=== PATIENT | male | born 1985 | race Caucasian/White ===

== ENCOUNTER 2020-04-11 20:16 | Emergency (ER) | payer OTHER, SELFPAY ==
[2020-04-11 20:20] VITALS: BP 148/98; PULSE 89; RESP 17; TEMP 37.1; O2SAT 99
--- NOTE | 2020-04-11 20:38 | ED.MALEGU ---
HPI - Male Genitourinary General Chief complaint: Urogenital-Male Stated complaint: Penile discharge Time Seen by Provider: 04/11/20 20:29 History of Present Illness HPI Narrative: Clear penile discharge for the past few days. Associated with mild testicular discomfort. No sores, swelling, fever, abdominal pain, nausea, vomiting. He has a h/o multiple previous STDs. He admits to recent unprotected sexual encounter with a new partner. Related Data Allergies Allergy/AdvReac Type Severity Reaction Status Date / Time No Known Allergies Allergy Unverified 04/11/20 20:22 Review of Systems Review of Systems: All systems reviewed & are unremarkable except as noted in HPI and below Constitutional: Constitutional: Denies chills and Denies fever(s) Cardiovascular: Cardiovascular: Denies chest pain Respiratory: Respiratory: Denies dyspnea Gastrointestinal: Gastrointestinal: Denies abdominal pain, Denies nausea and Denies vomiting Genitourinary: Genitourinary: Denies hematuria, Denies genital lesions, Denies dysuria, Reports penile discharge and Reports testicular pain Musculoskeletal: Musculoskeletal: Reports back pain (chronic) Neurologic: Denies numbness and Denies weakness PMFSH Past Medical History Medical History Patient denies significant medical history Social History Social History Smoking status: Never smoker Gender identity (if verbalized by the patient): Male Exam Const: General: healthy appearing, no acute distress and alert Nutritional Appearance: well nourished HENMT: Head: normal to inspection Resp: Effort & Inspection: normal respiratory effort GI: GI Palp: Yes Soft to palpation and No Tenderness to palpation present (GI) : Male General Exam: Yes normal external exam Scrotum: scrotum normal Testes: Testes normal Skin: General skin exam: normal color Rashes: no rashes Wounds: no wounds Neuro: General: patient oriented x3 and moves all extremities Speech: normal speech Extrem: General: normal to inspection Course Vital Signs Vital signs: Vital Signs Temperature 37.1 C 04/11/20 20:20 Pulse Rate 89 04/11/20 20:20 Respiratory Rate 17 04/11/20 20:20 Blood Pressure 148/98 H 04/11/20 20:20 Pulse Oximetry 99 04/11/20 20:20 Temperature 37.1 C 04/11/20 20:20 Pulse Rate 89 04/11/20 20:20 Respiratory Rate 17 04/11/20 20:20 Blood Pressure 148/98 H 04/11/20 20:20 Pulse Oximetry 99 04/11/20 20:20 MDM - Male Genitourinary Lab Data Labs: Lab Results 04/11/20 04/11/20 04/11/20 Range/Units 20:54 20:56 20:56 C.trachomatis RNA (TMA) Pending N.gonorrhoeae RNA (TMA) Pending Trichomonas Direct ID Cancelled T. vaginalis Amp RNA Cancelled Pending Discharge Plan Discharge Clinical Impression: Urethritis Patient Disposition: Home, Self-Care Condition: Stable Instructions: Antibiotic Form, Nonspecific Urethritis in Men (ED) Prescriptions: No Action hydrocortisone [Cortisone (hydrocortisone)] 1 % cream 1 applic TOPICAL BID-TID PRN (Reason: allergic reaction) Qty: 14.2 RF: 0 famotidine [Pepcid] 20 mg tablet 20 mg PO DAILY Qty: 7 RF: 0 Follow-up/Referrals: UNKNOWN,DOCTOR [Primary Care Provider] - Discharge Date/Time: 04/11/20 21:03
[2020-04-11] MEDS: cefTRIAXone 250 MG VIAL IM (20:57)
[2020-04-11] MEDS: AZITHROMYCIN 250 MG TABLET 1000 MG PO (20:57)
[2020-04-11] MEDS: metroNIDAZOLE 250 MG TABLET 2000 MG PO (20:57)
== END 2020-04-11 21:03 | disposition home or self-care (01) ==
PROVIDERS: Emergency Provider Emergency Medicine
DX: N34.2 Other urethritis (principal)
CPT/HCPCS: 87491; 87591; 87661; 96372; 99283; A9270; J0696

== ENCOUNTER 2022-07-03 13:22 | Emergency (ER) | payer OTHER, SELFPAY ==
[2022-07-03 13:55] VITALS: BP 118/71; PULSE 63; RESP 16; TEMP 36.6; O2SAT 100
== END 2022-07-03 14:29 | disposition left against medical advice (07) ==
LOC: ANHED 14:29
DX: R42 Dizziness and giddiness (principal)
CPT/HCPCS: 99199

== ENCOUNTER 2022-07-04 11:14 | Emergency (ER) | payer OTHER, SELFPAY ==
[2022-07-04 11:18] VITALS: BP 158/100; PULSE 73; RESP 18; TEMP 36.1; O2SAT 100
[2022-07-04] MEDS: MECLIZINE HCL 25 MG TABLET PO (12:20)
--- NOTE | 2022-07-04 13:07 | ED.DIZZY ---
HPI - Dizziness General Chief Complaint: Dizziness Stated Complaint: dizziness, left flank pain Time Seen by Provider: 07/04/22 11:32 History of Present Illness HPI Narrative: Patient is a 36-year-old male who presents ER with dizziness. Its worse when he lays backwards. Occasionally associated with nausea. Ongoing over the last week. Has tried no medication. No numbness or tingling in the arms or legs. No chest pain or chest pressure. Has felt elevated heart rate at times related to this. Patient denies decrease in hearing or muffled hearing or ear pressure. He has been trying to manipulate his left ear over the last week without improvement. Related Data Allergies Allergy/AdvReac Type Severity Reaction Status Date / Time No Known Allergies Allergy Verified 07/03/22 13:54 Review of Systems Review of Systems: All systems reviewed & are unremarkable except as noted in HPI and below Constitutional: Constitutional: Denies chills and Denies fever(s) ENT: Reports dizziness, Denies nasal congestion and Denies sore throat Cardiovascular: Cardiovascular: Denies chest pain, Denies rapid heart rate and Denies radiating jaw, neck or arm pain Neurologic: Reports dizziness, Denies focal weakness and Denies numbness PMFSH Past Medical History Medical History (Updated 07/04/22 @ 13:07 by Oli Meehan MD) Patient denies significant medical history Social History Social History Smoking status: Never smoker Gender identity (if verbalized by the patient): Male Exam Narrative: GENERAL: Well-appearing, well-nourished, and in no acute distress. HEAD: Normocephalic, atraumatic. EYES: PERRL and EOMI. ENT: Mucous membranes moist. TMs normal bilaterally. CHEST: Clear to auscultation. No respiratory distress. HEART: Regular rate and rhythm. Normal peripheral pulses. EXTREMITIES: Normal range of motion. No edema. NEURO: Alert and oriented x3. Ambulates with a steady gait. Has been able to stand up and bend over at the waist in all directions without provoking his dizziness. PSYCH: Normal mood and affect. Course Course Emergency Course: Discharge home. Improved symptoms with meclizine. [place] to be peripheral in nature as patient has been trying to manipulate his ear over the last week to help with symptoms. Vital Signs Vital signs: Vital Signs Temperature 97 F L 07/04/22 11:18 Pulse Rate 73 07/04/22 11:18 Respiratory Rate 18 07/04/22 11:18 Blood Pressure 158/100 H 07/04/22 11:18 Pulse Oximetry 100 07/04/22 11:18 Oxygen Delivery Room Air 07/04/22 11:18 Temperature 97 F L 07/04/22 11:18 Pulse Rate 73 07/04/22 11:18 Respiratory Rate 18 07/04/22 11:18 Blood Pressure 158/100 H 07/04/22 11:18 Pulse Oximetry 100 07/04/22 11:18 Oxygen Delivery Room Air 07/04/22 11:18 Discharge Plan Discharge Clinical Impression: Vertigo Patient Disposition: Home, Self-Care Condition: Stable Instructions: Vertigo (ED) Additional Instructions: Return the ER if you have focal weakness in arm or leg, you cannot keep down food or water, you lose consciousness, you have additional concerns. Take the meclizine 3 times a day over the next 2 days and then take it as needed for dizziness after that. Prescriptions: New meclizine 12.5 mg tablet 12.5 mg PO TID PRN (Reason: dizziness) Qty: 10 0RF No Action hydrocortisone [Cortisone (hydrocortisone)] 1 % cream 1 applic TOPICAL BID-TID PRN (Reason: allergic reaction) Qty: 14.2 0RF famotidine [Pepcid] 20 mg tablet 20 mg PO DAILY Qty: 7 0RF Follow-up/Referrals: Vikram Yap MD [Physician] - 1 Week PHYSICIAN NOT ON STAFF,NONSTAFF [Primary Care Provider] -
== END 2022-07-04 13:25 | disposition home or self-care (01) ==
PROVIDERS: Emergency Provider Emergency Medicine
DX: R42 Dizziness and giddiness (principal)
CPT/HCPCS: 99283; A9270

== ENCOUNTER 2022-09-11 14:18 | Emergency (ER) | payer OTHER, SELFPAY ==
--- NOTE | ~2022-09-11 | XR_ITS ---
EXAMINATION: XR chest 2V DATE: 09/11/2022 14:33 INDICATION: Cough TECHNIQUE: PA and lateral views of the chest are obtained. COMPARISON: 04/13/2016 FINDINGS: The lungs are free of acute opacities. No pleural effusion or pneumothorax. The cardiomedia stinal silhouette is normal. The visualized bones and soft tissues are unremarkable. IMPRESSION: 1. No acute cardiopulmonary abnormality. Reviewed, dictated and finalized at location B. T TECH
[2022-09-11 14:20] VITALS: BP 166/116; PULSE 85; RESP 16; TEMP 36.9; O2SAT 100
[2022-09-11 17:40] VITALS: BP 133/97; PULSE 79; RESP 15; TEMP 36.6; O2SAT 99
--- NOTE | 2022-09-11 17:42 | ED.URI ---
HPI - URI/Sore Throat General Chief Complaint: Upper Respiratory Infection Stated Complaint: cough Time Seen by Provider: 09/11/22 17:21 Source: patient Mode of arrival: ambulatory Limitations: no limitations History of Present Illness HPI Narrative: Patient is a 36-year-old male who presents the ED with report of persistent cough. Patient reports he had an upper respiratory infection 2 weeks ago with cough, congestion, rhinorrhea. He was seen at an outside urgent care and prescribed azithromycin. He was not tested for influenza or COVID at that time. He states symptoms improved and he has felt fine since then, but reports having a persistent cough, occasionally productive of brownish sputum. He otherwise denies any symptoms currently. He states he noted a very small tinge of blood in his sputum today, which prompted his presentation. Denies fever, chest pain, difficulty breathing. Related Data Allergies Allergy/AdvReac Type Severity Reaction Status Date / Time No Known Allergies Allergy Verified 07/03/22 13:54 Review of Systems Review of Systems: CONSTITUTIONAL: Denies fever, chills, or sweats. ENT: See HPI. CARDIOVASCULAR: Denies chest pain. RESPIRATORY: See HPI. GASTROINTESTINAL: Denies abdominal pain, nausea, vomiting. All systems reviewed & are unremarkable except as noted in HPI and below PMFSH Past Medical History Medical History Patient denies significant medical history Social History Social History Smoking status: Never smoker Gender identity (if verbalized by the patient): Male Exam Narrative: GENERAL: Well appearing, obese, non-toxic, in no acute distress. HEAD: Normocephalic, atraumatic. ENT: Mucous membranes moist. No posterior pharynx erythema. No tonsillar hypertrophy or exudate. Uvula midline. NECK: Supple. No adenopathy, no masses. RESPIRATORY: Airway patent, respirations nonlabored. Clear to auscultation bilaterally, no rales, rhonchi, wheezing. No distress. CARDIOVASCULAR: Regular rate and rhythm without murmurs, rubs, or gallops. Peripheral pulses 2+ and equal bilaterally. ABDOMINAL: Soft, nontender, nondistended, no hepatosplenomegaly. Normoactive BS. MUSCULOSKELETAL: Moves all extremities. Strength/ROM intact without gross deformities. SKIN: Warm, dry, normal color. No rashes. NEURO: A&O X3. Speech clear. Cranial nerves II-XII grossly intact. Steady gait. No ataxic movements. PSYCHIATRIC: Appropriate mood and affect. Normal interaction. Course Vital Signs Vital signs: Vital Signs Temperature 98.5 F 09/11/22 14:20 Pulse Rate 85 09/11/22 14:20 Respiratory Rate 16 09/11/22 14:20 Blood Pressure 166/116 H 09/11/22 14:20 Pulse Oximetry 100 09/11/22 14:20 Oxygen Delivery Room Air 09/11/22 14:20 Temperature 98 F 09/11/22 17:46 Pulse Rate 79 09/11/22 17:46 Respiratory Rate 15 09/11/22 17:46 Blood Pressure 133/97 H 09/11/22 17:46 Pulse Oximetry 99 09/11/22 17:48 Oxygen Delivery Room Air 09/11/22 17:48 MDM - URI/Sore Throat MDM Narrative Medical decision making narrative: Patient reported having persistent cough, ongoing x2 weeks status post URI. Noticed very small amount of blood-tinged sputum today. Patient's vitals stable upon arrival. Chest x-ray unremarkable. No signs of pneumonia. Patient otherwise asymptomatic at this time. Denying chest pain or difficulty breathing. No tachycardia or hypoxia. No lower extremity pain or swelling. Very low suspicion for PE or other acute pulmonary abnormality. Discussed likelihood of bronchitis and that symptoms should resolve soon. I recommended patient take Sudafed, Mucinex as needed. Do not feel patient requires antibiotics as he is otherwise denying any infectious symptoms or fevers. No wheezing or abnormal lung sounds heard on exam. Patient will be discharged. Advised giles
[2022-09-11 17:46] VITALS: BP 133/97; PULSE 79; RESP 15; TEMP 36.6; O2SAT 99
[2022-09-11 17:48] VITALS: O2SAT 99
== END 2022-09-11 18:41 | disposition home or self-care (01) ==
PROVIDERS: Emergency Provider Physician Assistant
DX: J40 Bronchitis, not specified as acute or chronic (principal)
CPT/HCPCS: 71046; 99283

== ENCOUNTER 2023-03-06 14:01 | Observation (INO) | payer OTHER, SELFPAY ==
--- NOTE | ~2023-03-06 | CT_ITS ---
EXAMINATION: CT abdomen pelvis w con DATE: 03/06/2023 16:13 INDICATION: abdominal pain / nausea vomiting TECHNIQUE: Computed tomography (CT) of the abdomen and pelvis was performed with 100 mL Omnipaque-350 intravenous contrast. Automated exposure control and iterative reconstruction technique were employe d. The dose-length product was 653.19 mGy-cm. COMPARISON: None. FINDINGS: Lower thorax: Unremarkable. Calcified right lower lobe granuloma. Liver: Normal. Biliary/Gallbladder: Gallbladder is normal. No bile duct dilation. Pancreas: No mass or duct dilation. Spleen: Normal. Adrenals:No mass. Kidneys: No suspicious mass, stone, or hydronephrosis. GI tract: Cecal and proximal ascending colonic wall thickening and surrounding inflammatory change. C olonic submucosal fat as can be seen with chronic IBD, obesity, chemotherapy treatment, and celiac di sease. No small or large bowel dilation. Normal appendix. Mild diverticulosis without diverticulitis. Mesentery/Peritoneum: No ascites, mass, or free air. Retroperitoneum: No mass. Pelvis: Pelvic organs are within normal limits. Soft Tissues: Soft tissues and body wall unremarkable. Bones: No acute osseous finding. IMPRESSION: Colitis involving the cecum and proximal ascending colon, likely on an infectious or inflammatory bas is. Consider ischemia if there is a history of vasculitis. Reviewed, dictated and finalized at location K. IMPRESSION: Colitis involving the cecum and proximal ascending colon, likely on an infectio us or inflammatory basis. Consider ischemia if there is a history of vasculitis .
[2023-03-06 14:03] VITALS: BP 100/68; PULSE 86; RESP 18; TEMP 36.5; O2SAT 100
[2023-03-06 15:00] LABS: Basophils Percent Auto 0.2 % (0.2-1.2); Eosinophils Percent Auto 0.2 % (0-4.4); Hematocrit 42.6 % (42.0-52.0); Hemoglobin 14.4 g/dL (14.0-18.0); Immature Granulocyte Absolute 0.04 K/mm3 (0.00-0.031); Immature Granulocyte Percent A 0.3 % (0-0.5); Lymphocytes Absolute Auto 1.91 K/mm3 (0.9-3.2); Lymphocytes Percent Auto 13.4 % (18.3-44.2); Mean Corpuscular HGB Conc 33.8 g/dl (32-36); Mean Corpuscular Hemoglobin 29.8 pg (26-34); Mean Corpuscular Volume 88.2 fl (80-100); Mean Platelet Volume 10.2 fl (7.4-10.4); Monocytes Absolute Auto 1.3 K/mm3 (0.1-0.6); Monocytes Percent Auto 9.4 % (2.6-8.5); Neutrophils Absolute Auto 10.9 K/mm3 (1.3-6.7); Neutrophils Percent Auto 76.5 % (45.5-73.1); Platelet Count Result 301 k/mm3 (150-375); Red Blood Count 4.83 M/mm3 (4.6-6.20); Red Cell Distribution Width 11.8 % (11.5-14.5); White Blood Count 14.3 K/mm3 (4.5-10.0)
[2023-03-06 15:04] VITALS: BP 113/77; PULSE 81; RESP 16; O2SAT 98
[2023-03-06 15:13] LABS: Alanine Aminotransferase 25 U/L (6-50); Albumin Level 4.8 g/dL (3.5-5.1); Alkaline Phosphatase 82 U/L (38-126); Anion Gap 8 mmol/L (8-16); Aspartate Amino Transferase 23 U/L (17-59); Bilirubin,Total 0.8 mg/dL (0.2-1.3); Blood Urea Nitrogen 37 mg/dL (9-20); Calcium 9.6 mg/dL (8.4-10.2); Carbon Dioxide 29 mmol/L (22-30); Chloride 97 mmol/L (98-107); Estimated CRCL calculation 40 ml/min; Estimated Glomerular Filt Rate 32; Glucose 110 mg/dL (65-110); Lipase 39 U/L (23-300); Potassium 4.3 mmol/L (3.4-5.0); Sodium 134 mmol/L (137-145)
[2023-03-06] MEDS: ONDANSETRON INJ 4 MG/2 ML VIAL IV PUSH (15:57)
[2023-03-06] MEDS: FAMOTIDINE 20 MG/2 ML VIAL IV PUSH (15:58)
[2023-03-06] MEDS: SODIUM CHLORIDE 0.9% IV 1,000 ML 999 ML IV CONT ×2 (15:58→17:17)
[2023-03-06 16:03] LABS: Magnesium 2.4 mg/dL (1.6-2.3)
[2023-03-06 16:12] LABS: Creatine Kinase 65 U/L (55-170)
--- NOTE | 2023-03-06 16:49 | ED.GENADULT ---
HPI - General Adult General Chief complaint: Unspecified <Darlene Mcgregor December, GRAIN DRIER OPERATOR - Last Filed: 03/06/23 18:55> Stated complaint: lethargic <Darlene Mcgregor December, - Last Filed: 03/06/23 18:55> Time Seen by Provider: 03/06/23 15:03 <Darlene Mcgregor December,N - Last Filed: 03/06/23 18:55> History of Present Illness HPI narrative: Ruslan Galarza is a 37 y/o male who presents today with complaints of abdominal pain with nausea vomiting. He states that he started to have abdominal pain 2 days ago, he came her to be evaluated but could not wait and had to get home. Yesterday he states that he had more nausea/vomiting and he has not been able to keep anything down. He denies any known fevers/ denies testicular pain/ denies changes with urination. His last BM was normal and it was today. <Darlene Mcgregor December,N - Last Filed: 03/06/23 18:55> Related Data Home medications: Home Medications Medication Instructions Recorded Confirmed atorvastatin 40 mg tablet 40 mg PO HS 03/06/23 03/06/23 bupropion HCl 300 mg 24 hr tablet, 300 mg PO DAILY 03/06/23 03/06/23 extended release clonidine HCl 0.1 mg tablet 0.1 mg PO BID PRN Anxiety 03/06/23 03/06/23 lisinopril 20 mg tablet 20 mg PO DAILY 03/06/23 03/06/23 <Darlene Mcgregor December,N - Last Filed: 03/06/23 18:55> Allergies/adverse reactions: Allergies Allergy/AdvReac Type Severity Reaction Status Date / Time No Known Allergies Allergy Verified 07/03/22 13:54 <Darlene Mcgregor December,N - Last Filed: 03/06/23 18:55> Review of Systems Review of Systems: CONSTITUTIONAL: Denies fever, chills, or sweats. EYES: Denies visual changes, redness, or discharge. ENT: Denies rhinorrhea, congestion, sore throat, or otalgia. CARDIOVASCULAR: Denies chest pain, palpitations, or edema. RESPIRATORY: Denies cough or dyspnea. GASTROINTESTINAL: Reports abdominal pain, nausea, vomiting, denies diarrhea. GENITOURINARY: Denies dysuria or hematuria. SKIN: Denies rash or itching. MUSCULOSKELETAL: Denies back pain, joint pain, or myalgia. NEUROLOGIC: Denies headache, numbness, dizziness, or weakness. PSYCHIATRIC: Denies anxiety or depression. <Darlene Mcgregor December, - Last Filed: 03/06/23 18:55> PMFSH Past Medical History Medical History: Medical History (Updated 03/06/23 @ 21:46 by Ramila Oakes PA-C) Anxiety Hyperlipidemia Hypertension <Darlene Mcgregor December, Last Filed: 03/06/23 18:55> Surgical History Surgical History: Surgical History (Updated 03/06/23 @ 21:39 by Ramila Oakes PA-C) History of colonoscopy <Darlene Mcgregor December, Last Filed: 03/06/23 18:55> Family History Family History: Family History (Updated 03/06/23 @ 21:39 by Ramila Oakes PA-C) Other Family history non-contributory <Darlene Mcgregor December, Last Filed: 03/06/23 18:55> Social History Social History: Social History Social History: Surrogate medical decision maker: Dulce Salguero, significant other. Code status: Full code. Smoking status: Never smoker Alcohol intake: never Drinks per week: 10 Substance use: never Substance use type: marijuana Lack of Transportation: YES Lack of Food: Never True Current Housing: I Have Housing Concerned About Future Housing: No Difficulty Paying Gas/Electric Bills: No Difficulty Paying for Meds: No Currently Unemployed: No Education: High School Diploma/GED Difficulty w/ Childcare or Family Care: No Spiritual care concerns: No <Darlene Mcgregor December, Last Filed: 03/06/23 18:55> Exam Narrative: GENERAL: Well-appearing, well-nourished, and in no acute distress. HEAD: Normocephalic, atraumatic. EYES: PERRLA and EOMI. ENT: Nares clear, no rhinorrhea or epistaxis. Mucous membranes moist. Oropharynx without tonsillar hypertrophy exudate or other lesions. NECK: Supple. No adenopathy or masses. No carotid bruits or JVD CHEST: Clear to auscultation. No
[2023-03-06 17:00] LABS: Appearance Urine Clear (Clear); Bacteria Urine None Seen /hpf; Bilirubin Urine Negative (Negative); Blood Urine Negative (Negative); Color Urine Yellow (Yellow); Glucose Urine UA Negative (Negative); Ketones Urine Negative (Negative); Leukocyte Esterase Ur Negative LEU/UL (Negative); Nitrate Urine Negative (Negative); Protein Urine Trace mg/dL (Negative); RBC Urine 0-2 /hpf (0-2); Squamous Epithelial Cell Urine None seen /hpf (Few); Urobilinogen Urine 0.2 mg/dL (<2.0); WBC Urine 0-5 /hpf
[2023-03-06 17:04] LABS: Add Urine Microscopic? YES; Specific Grav Ur 1.057 (1.001-1.035)
[2023-03-06] MEDS: LORazepam INJ (*CRX) 2 MG/ML VIAL 0.5 MG IV PUSH (17:17)
[2023-03-06 18:30] VITALS: BMI 28.0
--- NOTE | 2023-03-06 18:33 | PM.IMHP ---
H&P: HPI History of Present Illness Date/Time: 03/06/23 18:30 Chief Complaint: Abdominal pain and weakness. Narrative: This is a 37-year-old male with hypertension, hyperlipidemia, and anxiety who presented to the emergency department via private vehicle from home for evaluation of abdominal pain and weakness. The patient provides the following history. He developed diffuse abdominal discomfort several days ago which he has difficulties describing. He came to the ER 2 days ago for evaluation of these symptoms however the wait was long and he left from triage. He did have labs drawn at that time however and his creatinine was 4.00. 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 Unfortunately he continues to have the abdominal discomfort in addition to generalized weakness, fatigue with ?no energy? and occasional loose stools described as yellow and mucousy. He has been getting lightheaded and dizzy upon standing and reports near-syncope. He returned today and his blood pressures were stable on arrival. BUN and creatinine are elevated but look better compared to labs drawn a couple of days ago at 37 and 2.30 respectively. White blood cell count was elevated at 14.3. CT of the abdomen and pelvis showed colitis involving the cecum and proximal ascending colon, likely infectious or inflammatory. He was started on IV fluids and Zosyn in the ED and he is being admitted in this setting for further treatment and evaluation. With further questioning he mentions having a bout of colitis in his 20s and there were concerns at that time for possible inflammatory bowel disease however he reports having a colonoscopy as an outpatient which was unremarkable. He denies fever, hematemesis, melena, sick contacts, recent antibiotic use, and recent travel. He has lost some weight though that has been intentional. Review of Systems Review of Systems: Twelve systems were reviewed and are negative except for as per HPI. [facility] Past Medical History Medical History (Updated 03/06/23 @ 21:46 by Ramila Oakes PA-C) Anxiety Hyperlipidemia Hypertension Surgical History Surgical History (Updated 03/06/23 @ 21:39 by Ramila Oakes PA-C) History of colonoscopy Family History Family History (Updated 03/06/23 @ 21:39 by Ramila Oakes PA-C) Other Family history non-contributory Social History Social History Social History: Surrogate medical decision maker: Dulce Salguero, significant other. Code status: Full code. Smoking status: Never smoker Alcohol intake: never Drinks per week: 10 Substance use: never Substance use type: marijuana Lack of Transportation: YES Lack of Food: Never True Current Housing: I Have Housing Concerned About Future Housing: No Difficulty Paying Gas/Electric Bills: No Difficulty Paying for Meds: No Currently Unemployed: No Education: High School Diploma/GED Difficulty w/ Childcare or Family Care: No Spiritual care concerns: No Meds Home Medications and Allergies Home Medications Medication Instructions Recorded Confirmed Type atorvastatin 40 mg tablet 40 mg PO HS 03/06/23 03/06/23 History bupropion HCl 300 mg 24 hr tablet, 300 mg PO DAILY 03/06/23 03/06/23 History extended release clonidine HCl 0.1 mg tablet 0.1 mg PO BID PRN Anxiety 03/06/23 03/06/23 History lisinopril 20 mg tablet 20 mg PO DAILY 03/06/23 03/06/23 History Allergies Allergy/AdvReac Type Severity Reaction Status Date / Time No Known Allergies Allergy Verified 07/03/22 13:54 Vital Signs Vital Signs - 24 hr 03/06/23 14:03 03/06/23 15:04 Temperature 97.7 F Pulse Rate 86 81 Respiratory Rate 18 16 Blood Pressure 100/68 113/77 Pulse Oximetry 100 98 Oxygen Delivery Room Air Exam Narrative: General: Nontoxic-appearing
[2023-03-06] MEDS: PIPERACILLIN/TAZ 4.5G/NS 100ML 4.5 GM/100 ML BAG IVPB (18:34)
--- NOTE | 2023-03-06 20:10 | ADMGEN ---
This patient, uRslan Galarza, was admitted to [facility] Surg Room 302-01. Patient/family oriented to hospital policies and general routines including ID bracelet, bed and alarms, visiting hours, pain management, procedures, bathroom and other care routines, personal items, smoking policy, room service/diet, and visiting hours. Information on how to activate the Rapid Response Team has been discussed. Patient/Family are encouraged to report perceived risks to care and to ask questions if they do not understand what they are told or what they should do.
[2023-03-06] MEDS: LACTATED RINGERS 1,000 ML 150 ML IV CONT (20:29)
[2023-03-06] MEDS: clonazePAM (*CRX) 0.5 MG TABLET 1 MG PO (20:29)
[2023-03-06 22:00] VITALS: BP 107/53; PULSE 77; RESP 16; TEMP 36.8; O2SAT 100
[2023-03-06] MEDS: ATORVASTATIN 40 MG TABLET PO (22:54)
[2023-03-07] MEDS: PIPERACILLIN/TAZ 2.25G/NS 50ML 2.25 GM/50 ML BAG IVPB ×3 (00:20→11:49)
[2023-03-07 05:19] VITALS: BP 98/63; PULSE 70; RESP 16; TEMP 35.8; O2SAT 99
[2023-03-07 06:41] LABS: Hematocrit 35.4 % (42.0-52.0); Hemoglobin 11.8 g/dL (14.0-18.0); Mean Corpuscular HGB Conc 33.3 g/dl (32-36); Mean Corpuscular Hemoglobin 29.9 pg (26-34); Mean Corpuscular Volume 89.8 fl (80-100); Mean Platelet Volume 10.3 fl (7.4-10.4); Platelet Count Result 215 k/mm3 (150-375); Red Blood Count 3.94 M/mm3 (4.6-6.20); Red Cell Distribution Width 11.7 % (11.5-14.5); White Blood Count 9.4 K/mm3 (4.5-10.0)
[2023-03-07 07:33] LABS: Anion Gap 1 mmol/L (8-16); Blood Urea Nitrogen 25 mg/dL (9-20); Calcium 8.7 mg/dL (8.4-10.2); Carbon Dioxide 29 mmol/L (22-30); Chloride 104 mmol/L (98-107); Estimated CRCL calculation 64 ml/min; Estimated Glomerular Filt Rate 49; Glucose 98 mg/dL (65-110); Magnesium 2.1 mg/dL (1.6-2.3); Potassium 4.7 mmol/L (3.4-5.0); Sodium 134 mmol/L (137-145)
[2023-03-07 08:00] VITALS: RESP 16; O2SAT 98; O2SAT 99
[2023-03-07] MEDS: buPROPion HCL XL (24 HR) 150 MG TABCR 300 MG PO (08:10)
--- NOTE | 2023-03-07 08:30 | PM.IMPN ---
Progress Note: A&P Assessment and Plan (1) Colitis: Code(s): K52.9 - Noninfective gastroenteritis and colitis, unspecified Status: Acute Assessment and Plan: Colitis seen on imaging involving the cecum and proximal ascending colon could be infectious or inflammatory. -will start her on IV fluids and Zosyn -p.r.n. pain medication -regular diet -GI follow up as outpatient. -stool cultures ordered but not collected (2) Acute kidney injury: Code(s): N17.9 - Acute kidney failure, unspecified Status: Acute Assessment and Plan: Creatinine was 4 when he presented to the ER on 03/04. This admission creatinine is 2.3 and down trending with IV fluids. Avoid nephrotoxic agents. Holding lisinopril. Likely pre renal related to dehydration from colitis. (3) Dehydration: Code(s): E86.0 - Dehydration Status: Acute Assessment and Plan: IV fluids Monitor labs Vital signs stable (4) Hypertension: Code(s): I10 - Essential (primary) hypertension Status: Acute Assessment and Plan: On clonidine and lisinopril at home. Both agents held. Blood pressures are 107-98/53-63 (5) Anxiety: Code(s): F41.9 - Anxiety disorder, unspecified Status: Acute Assessment and Plan: Stable. Taking bupropion and clonidine Subjective Date/time seen: 03/07/23 08:30 Interval history: Chief Complaint: Abdominal pain and weakness. Narrative: This is a 37-year-old male with hypertension, hyperlipidemia, and anxiety who presented to the emergency department via private vehicle from home for evaluation of abdominal pain and weakness. The patient provides the following history. He developed diffuse abdominal discomfort several days ago which he has difficulties describing. He came to the ER 2 days ago for evaluation of these symptoms however the wait was long and he left from triage. He did have labs drawn at that time however and his creatinine was 4.00. 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 Unfortunately he continues to have the abdominal discomfort in addition to generalized weakness, fatigue with ?no energy? and occasional loose stools described as yellow and mucousy. He has been getting lightheaded and dizzy upon standing and reports near-syncope. He returned today and his blood pressures were stable on arrival. BUN and creatinine are elevated but look better compared to labs drawn a couple of days ago at 37 and 2.30 respectively. White blood cell count was elevated at 14.3.? CT of the abdomen and pelvis showed colitis involving the cecum and proximal ascending colon, likely infectious or inflammatory. He was started on IV fluids and Zosyn in the ED and he is being admitted in this setting for further treatment and evaluation. With further questioning he mentions having a bout of colitis in his 20s and there were concerns at that time for possible inflammatory bowel disease however he reports having a colonoscopy as an outpatient which was unremarkable. He denies fever, hematemesis, melena, sick contacts, recent antibiotic use, and recent travel. He has lost some weight though that has been intentional. 03/07: Patient is seen today resting in bed with his and daughter at the bedside. He has been tolerating a regular diet and says that his pain is better than when he came in. He is also feeling less weak now that we have hydrated him. He is very talkative and has concerns about why he has so dehydrated or while kidneys were not functioning properly. He says those started on lisinopril a couple of months ago for high blood pressure however since then he has been having intermittent episodes of was presumed to be orthostatic hypotension. 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 However he feels like he drinks plenty fluids w
[2023-03-07] MEDS: HYDROcodone/acetaminophen (*CRX) 5-325 MG TABLET 1 TAB PO (11:53)
[2023-03-07] MEDS: LACTATED RINGERS 1,000 ML 150 ML IV CONT (11:58)
[2023-03-07 14:21] LABS: Anion Gap 4 mmol/L (8-16); Blood Urea Nitrogen 24 mg/dL (9-20); Calcium 8.2 mg/dL (8.4-10.2); Carbon Dioxide 27 mmol/L (22-30); Chloride 103 mmol/L (98-107); Estimated CRCL calculation 73 ml/min; Estimated Glomerular Filt Rate 57; Glucose 128 mg/dL (65-110); Potassium 4.2 mmol/L (3.4-5.0); Sodium 134 mmol/L (137-145)
--- NOTE | 2023-03-07 14:32 | PM.DS ---
DS: Admitting Diagnosis Discharge Date WednesdayMarch 07 Admitting Diagnosis ISABELA DS: Discharge Diagnosis Discharge Diagnosis (1) Colitis: Code(s): K52.9 - Noninfective gastroenteritis and colitis, unspecified Status: Acute Assessment and Plan: Colitis seen on imaging involving the cecum and proximal ascending colon could be infectious or inflammatory. -will start her on IV fluids and Zosyn -p.r.n. pain medication -regular diet -GI follow up as outpatient. -stool cultures ordered but not collected (2) Acute kidney injury: Code(s): N17.9 - Acute kidney failure, unspecified Status: Acute Assessment and Plan: Creatinine was 4 when he presented to the ER on 03/04. This admission creatinine is 2.3 and down trending with IV fluids. Avoid nephrotoxic agents. Holding lisinopril. Likely pre renal related to dehydration from colitis. (3) Dehydration: Code(s): E86.0 - Dehydration Status: Acute Assessment and Plan: IV fluids Monitor labs Vital signs stable (4) Hypertension: Code(s): I10 - Essential (primary) hypertension Status: Acute Assessment and Plan: On clonidine and lisinopril at home. Both agents held. Blood pressures are 107-98/53-63 (5) Anxiety: Code(s): F41.9 - Anxiety disorder, unspecified Status: Acute Assessment and Plan: Stable. Taking bupropion and clonidine DS: Summary Hospital Course Hospital Course: Narrative: This is a 37-year-old male with hypertension, hyperlipidemia, and anxiety who presented to the emergency department via private vehicle from home for evaluation of abdominal pain and weakness. The patient provides the following history. He developed diffuse abdominal discomfort several days ago which he has difficulties describing. He came to the ER 2 days ago for evaluation of these symptoms however the wait was long and he left from triage. He did have labs drawn at that time however and his creatinine was 4.00. 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 Unfortunately he continues to have the abdominal discomfort in addition to generalized weakness, fatigue with ?no energy? and occasional loose stools described as yellow and mucousy. He has been getting lightheaded and dizzy upon standing and reports near-syncope. He returned today and his blood pressures were stable on arrival. BUN and creatinine are elevated but look better compared to labs drawn a couple of days ago at 37 and 2.30 respectively. White blood cell count was elevated at 14.3.? CT of the abdomen and pelvis showed colitis involving the cecum and proximal ascending colon, likely infectious or inflammatory. He was started on IV fluids and Zosyn in the ED and he is being admitted in this setting for further treatment and evaluation. With further questioning he mentions having a bout of colitis in his 20s and there were concerns at that time for possible inflammatory bowel disease however he reports having a colonoscopy as an outpatient which was unremarkable. He denies fever, hematemesis, melena, sick contacts, recent antibiotic use, and recent travel. He has lost some weight though that has been intentional. 03/07:? Patient is seen today resting in bed with his and daughter at the bedside.? He has been tolerating a regular diet and says that his pain is better than when he came in.? He is also feeling less weak now that we have hydrated him.? He is very talkative and has concerns about why he has so dehydrated or while kidneys were not functioning properly.? He says those started on lisinopril a couple of months ago for high blood pressure however since then he has been having intermittent episodes of was presumed to be orthostatic hypotension.? 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 However he feels like he
[2023-03-07 14:52] VITALS: BP 119/65; O2SAT 98
== END 2023-03-07 15:20 | disposition home or self-care (01) ==
LOC: ANHED 17:48 → ANH3MEDSUR 19:13
PROVIDERS: Emergency Medicine; Nurse Practitioner Acute Care; Physician Assistant; Admitting Provider Student in an Organized Health Care Education/Training Program; Emergency Provider Nurse Practitioner Family; PCP Physician Assistant; Visit Provider Student in an Organized Health Care Education/Training Program
DX: K52.9 Noninfective gastroenteritis and colitis, unspecified (principal); N17.9 Acute kidney failure, unspecified; E86.0 Dehydration; I10 Essential (primary) hypertension; F41.9 Anxiety disorder, unspecified; R11.2 Nausea with vomiting, unspecified; R53.1 Weakness; R53.83 Other fatigue; R42 Dizziness and giddiness; D72.829 Elevated white blood cell count, unspecified; E78.5 Hyperlipidemia, unspecified; R79.89 Other specified abnormal findings of blood chemistry; Z79.899 Other long term (current) drug therapy
CPT/HCPCS: 36415; 74177; 80048; 80053; 81001; 82550; 83605; 83690; 83735; 85025; 85027; 96361; 96365; 96366; 96374; 96375; 99285; A9270; G0378; G0379; J2060; J2405; J2543; J7030; J7120; Q9967

== ENCOUNTER 2023-06-20 17:02 | Emergency (ER) | payer OTHER, SELFPAY ==
[2023-06-20 17:07] VITALS: BP 136/88; PULSE 84; RESP 16; TEMP 36.8; O2SAT 98
--- NOTE | 2023-06-20 17:47 | ED.WOUNDLAC ---
HPI - Wound/Laceration General Chief Complaint: Wound/Laceration Stated Complaint: infected finger Time Seen by Provider: 06/20/23 17:11 History of Present Illness HPI narrative: Patient is a 37-year-old male presenting with concerns for an infection. States that he cut his left index finger a few days ago. States that he noticed a small amount of pus draining from it today and there was some surrounding redness. He denies pain or redness spreading down his finger. Denies decreased range of motion. No fevers or chills. No further complaints. Related Data Home Medications Medication Instructions Recorded Confirmed lisinopril 20 mg tablet 20 mg PO DAILY 03/06/23 03/06/23 Allergies Allergy/AdvReac Type Severity Reaction Status Date / Time No Known Allergies Allergy Verified 06/20/23 17:08 Review of Systems Review of Systems: All systems reviewed & are unremarkable except as noted in HPI and below PMFSH Past Medical History Medical History Anxiety Hyperlipidemia Hypertension Surgical History Surgical History History of colonoscopy Family History Family History Other Family history non-contributory Social History Social History Social History: Surrogate medical decision maker: Dulce Salguero, significant other. Code status: Full code. Smoking status: Never smoker Alcohol intake: never Drinks per week: 10 Substance use: never Substance use type: marijuana Lack of Transportation: YES Lack of Food: Never True Current Housing: I Have Housing Concerned About Future Housing: No Difficulty Paying Gas/Electric Bills: No Difficulty Paying for Meds: No Currently Unemployed: No Education: High School Diploma/GED Difficulty w/ Childcare or Family Care: No Spiritual care concerns: No Exam Narrative: GENERAL: Well-appearing, no acute distress HEAD: Normocephalic, atraumatic. EYES: PERRLA and EOMI. ENT: Grossly unremarkable NECK: Supple. CHEST: No respiratory distress. HEART: Regular rate and rhythm EXTREMITIES: small wound distal aspect of dorsal left index finger with mild surrounding erythema, no drainage, no erythema spreading distally or proximally, no evidence of paronychia or felon; no erythema of flexor aspect, ROM is normal, cap refill brisk SKIN: Warm, dry, as above NEURO: No focal deficits. Alert and oriented x3. PSYCH: Normal mood and affect. Course Vital Signs Vital signs: Vital Signs Temperature 98.2 F 06/20/23 17:07 Pulse Rate 84 06/20/23 17:07 Respiratory Rate 16 06/20/23 17:07 Blood Pressure 136/88 06/20/23 17:07 Pulse Oximetry 98 06/20/23 17:07 Temperature 98.2 F 06/20/23 17:07 Pulse Rate 84 06/20/23 17:07 Respiratory Rate 16 06/20/23 17:07 Blood Pressure 136/88 06/20/23 17:07 Pulse Oximetry 98 06/20/23 17:07 MDM - Wound/Laceration MDM Narrative Medical decision making narrative: 37-year-old male presenting with wound infection. Vitals are stable. Exam remarkable for the above. It does appear that he has a localized infection of a small wound of the distal left index finger. No evidence of paronychia or felon. No evidence of flexor tenosynovitis. No evidence of deeper or spreading infection. Will treat with Doxy and Keflex. Advised warm compresses. Appropriate return precautions given. Discharged in stable condition. Differential Diagnosis Differential diagnosis: Likely abscess, abrasion and other (Cellulitis) Medical Records Attestation: I reviewed the patient's medical records. Critical Care Time Critical Care Time Critical Care Time: No Discharge Plan Discharge Clinical Impression: Wound infection Patient Disposition: Home, Self-Care Conditio
[2023-06-20] MEDS: DOXYCYCLINE HYCLATE 100 MG TABLET PO (18:00)
[2023-06-20] MEDS: CEPHALEXIN 500 MG CAPSULE PO (18:00)
== END 2023-06-20 18:06 | disposition home or self-care (01) ==
PROVIDERS: Emergency Provider Emergency Medicine; PCP Physician Assistant
DX: S61.201A Unspecified open wound of left index finger without damage to nail, initial encounter (principal); L08.9 Local infection of the skin and subcutaneous tissue, unspecified; I10 Essential (primary) hypertension; E78.5 Hyperlipidemia, unspecified; W26.9XXA Contact with unspecified sharp object(s), initial encounter
CPT/HCPCS: 99283; A9270